=== PATIENT | female | born 1995 | race Caucasian/White ===

== ENCOUNTER 2019-05-09 05:32 | Emergency (ER) | payer SELFPAY ==
[~2019-05-09] VITALS: Ht 162.6 cm; Wt 93.2 kg
[2019-05-09] MEDS ORDERED: METHOCARBAMOL 500MG TABLET PO ONE (06:30)
[2019-05-09] MEDS ORDERED: KETOROLAC 30MG/ML VIAL IM ONE (06:30)
[2019-05-09 08:16] VITALS: BP 129/67
== END 2019-05-09 08:32 | disposition home or self-care (01) ==
LOC: ER 05:32
DX: M54.5 Low back pain (principal); M54.30 Sciatica, unspecified side; F12.10 Cannabis abuse, uncomplicated
CPT/HCPCS: 81025; 96372; 99283; J1885